=== PATIENT | female | born 1990 | race Two or more races ===

== ENCOUNTER 2017-09-05 18:46 | Emergency (ER) | payer SELFPAY ==
[~2017-09-05] VITALS: Ht 167.6 cm; Wt 65.8 kg
[2017-09-05] MEDS ORDERED: IOHEXOL 300 MG/ML 100ML BOTTLE IJ ONE (19:41)
[2017-09-05] MEDS ORDERED: MORPHINE SULF INJ 2 MG/ML SYRINGE 1ML IV ONE (19:45)
[2017-09-05] MEDS ORDERED: ONDANSETRON HCL 4 MG/2 ML VIAL IV ONE ×3 (19:45→23:30)
[2017-09-05 21:17] LABS: Albumin 4.3 g/dL (3.4-5.0); Alkaline Phosphatase 62 U/L (45-117); Anion Gap 5 (5-15); Aspartate Aminotransferase 29 U/L (15-37); BUN/Creatinine Ratio 20.8; Bilirubin, Total 0.3 mg/dL (0.2-1.0); Blood Urea Nitrogen 16 mg/dL (7-18); Calcium 8.6 mg/dL (8.5-10.1); Carbon Dioxide 26 mmol/L (21-32); Chloride 107 mmol/L (98-107); GFR African American 114 mL/min; GFR Non-African American 94 mL/min; Glucose 126 mg/dL (74-106); Potassium 3.8 mmol/L (3.5-5.1); Sodium 138 mmol/L (136-145); Total Protein 8.1 g/dL (6.4-8.2)
[2017-09-05 21:18] LABS: Hematocrit 38.5 % (36.0-46.0); Mean Corpuscular Hemoglobin 29.1 pg (28.0-32.0); Mean Corpuscular Hgb Conc. 33.8 g/dL (32.0-36.0); Mean Corpuscular Volume 86.2 fL (80.0-100.0); Mean Platelet Volume 9.6 fL (6.9-10.8); Platelet Count (auto) 216 10^3/uL (140-450); Red Cell Distribution Width 13.6 % (11.8-14.3); White Blood Cell 26.8 10^3/uL (4.4-10.8)
[2017-09-05 21:25] LABS: Metamyelocytes % 0; Myelocytes % 0; Promyelocytes % 0; Reactive Lymphocytes 0
[2017-09-05 21:26] LABS: Urine Bilirubin Negative (Negative); Urine Blood 1+ /uL (Negative); Urine Color Yellow (Yellow); Urine Glucose Normal (Normal); Urine Ketone Negative (Negative); Urine Mucus FEW (None Seen); Urine Nitrite Negative (Negative); Urine RBC 19 /hpf (0 - 4); Urine Squamous Epithelial Cell FEW /hpf (<5); Urine Urobilinogen Normal (Negative)
[2017-09-05 21:55] LABS: Platelet Estimate Adequate
[2017-09-05 21:56] LABS: RBC Morphology Normal
[2017-09-05] MEDS ORDERED: HYDROmorphone HCL 2 MG/ML VL IV ONE (22:00)
[2017-09-06] MEDS ORDERED: LORazepam 0.5 MG TAB PO ONE (00:15)
[2017-09-06] MEDS ORDERED: HYDROmorphone HCL 2 MG/ML VL IV ONE ×2 (02:30→06:00)
[2017-09-06] MEDS ORDERED: ONDANSETRON HCL 4 MG/2 ML VIAL IV ONE ×2 (02:30→08:15)
[2017-09-06 09:23] VITALS: BP 122/83
[2017-09-06] MEDS ORDERED: MORPHINE SULF INJ 2 MG/ML SYRINGE 1ML IV ONE (09:45)
== END 2017-09-06 10:14 | disposition short-term general hospital (02) ==
LOC: EDBD 18:46 → ER 18:55
DX: S32.402A Unspecified fracture of left acetabulum, initial encounter for closed fracture (principal); S32.10XA Unspecified fracture of sacrum, initial encounter for closed fracture; V49.49XA Driver injured in collision with other motor vehicles in traffic accident, initial encounter; Y93.89 Activity, other specified; Y99.8 Other external cause status; Y92.410 Unspecified street and highway as the place of occurrence of the external cause
CPT/HCPCS: 36415; 70450; 71260; 72125; 72170; 73030; 74177; 80053; 81001; 82962; 84484; 85007; 85027; 96374; 96375; 96376; 99285; J1170; J2270; J2405; Q9967